=== PATIENT | female | born 1960 ===

== ENCOUNTER 2019-11-21 10:31 | Emergency (ER) | payer OTHER ==
[~2019-11-21] VITALS: Ht 162.6 cm; Wt 81.6 kg
== END 2019-11-21 13:44 | disposition home or self-care (01) ==
LOC: ER 10:31
DX: B34.9 Viral infection, unspecified (principal)

== ENCOUNTER 2021-01-30 16:40 | Emergency (ER) | payer OTHER ==
[~2021-01-30] VITALS: Ht 162.6 cm; Wt 90.7 kg
[2021-01-30] MEDS ORDERED: BUTALBIT-ACETA1 EACH PO (20:50)
== END 2021-01-30 21:08 | disposition home or self-care (01) ==
LOC: ER 16:40
DX: R11.2 Nausea with vomiting, unspecified (principal); R51.9 Headache, unspecified; R53.81 Other malaise